=== PATIENT | male | born 1940 | race African-American/Black ===

== ENCOUNTER 2022-05-21 11:15 | Emergency (ER) | payer OTHER ==
[2022-05-21 11:41] LABS: HEMOGLOBIN 12.8 gm/dl (12.3-15.3); RED BLOOD COUNT 4.12 M/UL (4.00-5.10); WHITE BLOOD COUNT 3.9 K/UL (4.5-11.0)
[2022-05-21 12:08] LABS: BUN/CREATININE RATIO 15 (0-10)
== END 2022-05-21 15:00 | disposition short-term general hospital (02) ==
LOC: ER1 11:15 → EDSEX 11:15 → ER1 15:00
PROVIDERS: Emergency Medicine
DX: R07.9 Chest pain, unspecified (principal); I10 Essential (primary) hypertension; E78.5 Hyperlipidemia, unspecified; I48.91 Unspecified atrial fibrillation; Z85.72 Personal history of non-Hodgkin lymphomas; Z95.0 Presence of cardiac pacemaker; Z20.828 Contact with and (suspected) exposure to other viral communicable diseases
CPT/HCPCS: 71045; 80053; 82550; 82553; 84484; 85025; 85610; 85730; 93005; 99285; U0002